=== PATIENT | female | born 1995 | race Caucasian/White ===

== ENCOUNTER 2018-03-07 13:33 | Outpatient (CLI) | payer OTHER ==
[2018-03-07] MEDS ORDERED: LACT1CAP37 PO (14:14)
[2018-03-07] MEDS ORDERED: MV-M1LOZ PO (14:14)
[2018-03-07] MEDS ORDERED: [UNRECOGNIZED DRUG - CODE] INJ (14:14)
[2018-03-07] MEDS ORDERED: [UNRECOGNIZED DRUG - CODE] PO (14:14)
[2018-03-07 14:39] LABS: MICROSCOPIC NOT IND
[2018-03-07 14:41] LABS: CULTURE INDICATED? NO
[2018-03-07 14:47] LABS: MEAN CORPUSCULAR HEMOGLOBIN 31.3 pg (27.5-34.5); MEAN CORPUSCULAR HGB CONC 34.4 g/dL (33.2-36.2); MEAN CORPUSCULAR VOLUME 91.1 fL (81-97); PLATELET COUNT 231 x10^3/uL (130-400); RED BLOOD COUNT 4.87 x10^6/uL (4.38-5.82); RED CELL DISTRIBUTION WIDTH 13.1 % (9.4-14.8)
[2018-03-07 14:51] LABS: ANION GAP 4 mmol/L (5-15); CHLORIDE 107 mmol/L (98-107); CREATININE 0.75 mg/dL (0.7-1.3)
[2018-03-07 15:20] LABS: MD YES
[2018-03-07 15:34] LABS: BAND#(MANUAL) 0.03 x10^3/uL; BANDS%(MANUAL) 1 % (0-7); BASOS#(MANUAL) 0.06 x10^3/uL (0-0.1); BASOS% (MANUAL) 2 % (0-1); EOS% (MANUAL) 7 % (1-7); LYMPHS% (MANUAL) 31 % (22-44); MONOS#(MANUAL) 0.41 x10^3/uL (0.3-2.7); MONOS% (MANUAL) 14 % (2-9); REACTIVE LYMPHS # (MANUAL) 0.17 x10^3/uL (0-0); REACTIVE LYMPHS % (MANUAL) 6 % (0-0); SEG#(MANUAL) 1.13 x10^3/uL (1.8-6.8); SEGS% (MANUAL) 39 % (42-75)
[2018-03-07 15:35] LABS: <PLATELET ESTIMATE> ADEQUATE; ANISOCYTOSIS 1+; OVALOCYTES 1+; SMALL PLATELETS 1+; TOXIC GRAN 1+
== END 2018-03-07 23:59 | disposition home or self-care (01) ==
LOC: EDSEX → STAR 13:33 → EDSEX 13:33 → STAR 23:59
PROVIDERS: ATTEND Obstetrics & Gynecology
DX: Z01.818 Encounter for other preprocedural examination (principal); R10.2 Pelvic and perineal pain; N93.9 Abnormal uterine and vaginal bleeding, unspecified
CPT/HCPCS: 36415; 80048; 81003; 85025

== ENCOUNTER 2018-03-15 05:42 | Day surgery (SDC) | payer OTHER ==
[~2018-03-15] VITALS: Ht 157.5 cm; Wt 79.0 kg
[~2018-03-15 05:42] MED LIST: LACT1CAP37 PO; MV-M1LOZ PO; [UNRECOGNIZED DRUG - CODE] INJ; [UNRECOGNIZED DRUG - CODE] PO
[2018-03-15] MEDS ORDERED: FLUORESCEIN SODIUM 500 MG/5 ML ONE (06:51)
[2018-03-15] MEDS ORDERED: BUPIVACAINE/PF 0.25% ONE (06:51)
[2018-03-15] MEDS ORDERED: EPINEPHRINE 1 MG/ML, 1ML ONE (06:51)
[2018-03-15] MEDS ORDERED: LACTATED RINGERS 1,000 ML IV SCH (06:59)
[2018-03-15] MEDS ORDERED: GABAPENTIN 300 MG CAPSULE PO ONE (07:00)
[2018-03-15] MEDS ORDERED: ACETAMINOPHEN 500 MG TABLET PO ONE (07:00)
[2018-03-15] MEDS ORDERED: MIDAZOLAM 1 MG/ML, 2ML ONE (07:16)
[2018-03-15] MEDS ORDERED: FENTANYL PF 250 MCG/5ML ONE (07:16)
[2018-03-15] MEDS ORDERED: PROPOFOL 50 ML ONE (07:16)
[2018-03-15] MEDS ORDERED: GLYCOPYRROLATE 0.2MG/1ML, 5ML ONE (07:31)
[2018-03-15] MEDS ORDERED: CEFAZOLIN 1,000 MG ONE (07:31)
[2018-03-15] MEDS ORDERED: ROCURONIUM 10 MG/ML,10ML ONE (07:31)
[2018-03-15] MEDS ORDERED: KETOROLAC 30 MG/1 ML ONE (07:31)
[2018-03-15] MEDS ORDERED: SUCCINYLCHOLINE 20 MG/ML, 10ML ONE (07:31)
[2018-03-15] MEDS ORDERED: ONDANSETRON 2MG/ML, 2ML ONE (07:31)
[2018-03-15] MEDS ORDERED: DEXAMETHASONE 4 MG/ML, 1ML ONE (07:31)
[2018-03-15] MEDS ORDERED: ONDANSETRON 2MG/ML, 2ML IV PRN (08:30)
[2018-03-15] MEDS ORDERED: PROMETHAZINE 12.5 MG SUPP PR PRN (08:30)
[2018-03-15] MEDS ORDERED: ONDANSETRON ODT 8 MG PO PRN (08:30)
[2018-03-15] MEDS ORDERED: MORPHINE SULFATE 4 MG/ML, 1ML IVPush PRN (08:30)
[2018-03-15] MEDS ORDERED: EPHEDRINE 50 MG/ML, 1ML IM PRN (08:30)
[2018-03-15] MEDS ORDERED: DIPHENHYDRAMINE 50 MG/ML, 1ML IVPush PRN (08:30)
[2018-03-15] MEDS ORDERED: MIDAZOLAM 1 MG/ML, 2ML IV PRN (08:30)
[2018-03-15] MEDS ORDERED: FENTANYL PF 100 MCG/2ML IV PRN (08:30)
[2018-03-15] MEDS ORDERED: OXYcodone 5 MG/5 ML ORAL.SOL UDC PO PRN (08:30)
[2018-03-15] MEDS ORDERED: PROMETHAZINE 25 MG SUPP PR PRN (08:30)
[2018-03-15] MEDS ORDERED: PROMETHAZINE 25 MG/ML, 1ML IV PRN (08:30)
[2018-03-15] MEDS ORDERED: ACETAMINOPHEN 325 MG TABLET PO PRN (08:30)
[2018-03-15] MEDS ORDERED: FUROSEMIDE 20 MG/2 ML ONE (09:11)
[2018-03-15] MEDS ORDERED: MEPERIDINE/PF 25MG/ML,1ML ONE (09:31)
[2018-03-15] MEDS: MEPERIDINE/PF 25MG/0.5ML IVPush PRN ×2 (09:35→09:40)
[2018-03-15] MEDS ORDERED: OXYcodone 5 MG/5 ML ORAL.SOL UDC ONE (10:04)
== END 2018-03-15 11:25 | disposition home or self-care (01) ==
LOC: EDSEX → OUT 05:42
PROVIDERS: ATTEND Obstetrics & Gynecology
DX: N83.02 Follicular cyst of left ovary (principal); N83.01 Follicular cyst of right ovary; N93.9 Abnormal uterine and vaginal bleeding, unspecified; N83.8 Other noninflammatory disorders of ovary, fallopian tube and broad ligament; I47.1 Supraventricular tachycardia; F32.9 Major depressive disorder, single episode, unspecified; Z98.890 Other specified postprocedural states
CPT/HCPCS: 58552; 88307; J0171; J0330; J0690; J1100; J1885; J1940; J2175; J2250; J2405; J2704; J3010; J3490; J7120